=== PATIENT | male | born 1975 | race African-American/Black ===

== ENCOUNTER 2017-04-25 00:08 | Emergency (ER) | payer SELFPAY ==
[~2017-04-25] VITALS: Ht 188 cm; Wt 102.0 kg
[2017-04-25 00:36] VITALS: BP 145/79
== END 2017-04-25 02:30 | disposition left against medical advice (07) ==
LOC: ER 00:08
DX: F10.129 Alcohol abuse with intoxication, unspecified (principal); Z53.21 Procedure and treatment not carried out due to patient leaving prior to being seen by health care provider